=== PATIENT | male | born 1985 | race Caucasian/White ===

== ENCOUNTER 2020-11-16 15:01 | Outpatient (REF) | payer MEDICAID, SELFPAY ==
[2020-11-16 15:37] LABS: COVID-19 Test Negative (Negative)
== END 2020-11-16 15:02 | disposition home or self-care (01) ==
LOC: HO.LAB 15:01
PROVIDERS: Visit Provider Internal Medicine
DX: Z20.822 Contact with and (suspected) exposure to COVID-19 (principal)
CPT/HCPCS: 36415; 87635; C9803

== ENCOUNTER 2021-03-24 12:56 | Outpatient (REF) | payer MEDICAID, SELFPAY | END 2021-03-24 12:57 | disposition home or self-care (01) | LOC: HO.LAB 12:56 | PROVIDERS: Visit Provider Internal Medicine | DX: Z20.822 Contact with and (suspected) exposure to COVID-19 (principal) | CPT/HCPCS: 36415; 87635; C9803; U0003; U0005 ==

== ENCOUNTER 2024-01-20 23:42 | Emergency (ER) | payer MEDICAID, SELFPAY ==
--- NOTE | ~2024-01-20 | XR_ITS ---
EXAMINATION: XR HAND/WRIST, LEFT CLINICAL INFORMATION: Injury. COMPARISON: None TECHNIQUE: PA, lateral, and oblique views of the left hand and wrist. FINDINGS: Images are obtained with a marker directed towards the base of the fifth proximal phalanx. No fractures, malalignments or arthropathic changes noted. No soft tissue emphysema visualized. XR/XR hand wrist LT IMPRESSION: No acute abnormalities identified.
[2024-01-21 02:04] VITALS: BP 140/96; PULSE 80; RESP 22; TEMP 36.8; O2SAT 97; BMI 22.5
--- NOTE | 2024-01-21 04:16 | ED.EXTPRO ---
HPI - Extremity Problem General Chief complaint: Extremity Injury, Upper Stated complaint: left hand swelling, punched a wall Time Seen by Provider: 01/21/24 04:16 History of Present Illness ED Provider: Geovanna MEYER Narrative: The patient is a 38-year-old male who reports that he punched a wall at home with his left hand. He has pain at the hand and swelling and came to the emergency room for evaluation. He drove himself to the emergency room. He says that he has been under a lot of family stress recently. He says that his girlfriend is incarcerated. He says he is raising a child and that he has lost his job. He says the child is currently with his girlfriend's mother and the child is well looked after. He denies any suicidality or plans to harm himself or anyone else. He does not wish to speak with a counselor ailyn. Related Data Allergies Allergy/AdvReac Type Severity Reaction Status Date / Time Penicillins [PENICILLINS] Allergy Unknown UNKNOWN Unverified 01/21/24 02:21 Review of Systems Review of Systems: Yes all other systems are reviewed and are negative [facility] Social History Social History Smoked in Last 30 Days: Yes Use of substances other than those prescribed or required for medical reasons: Yes Substance Use Type: Marijuana Advance Directives: No Advance Directives Information Provided: No Do you have a plan to hurt others: No Plan Physical Exam Vital Signs: Vital Signs: Last Vital Signs Temp 98.0 F 01/21/24 04:59 Pulse 64 01/21/24 04:59 Resp 18 01/21/24 04:59 BP 118/69 01/21/24 04:59 Pulse Ox 95 01/21/24 04:59 O2 Del Method Room Air 01/21/24 04:59 BMI result Body Mass Index 22.5 Const: Other: The patient is awake and alert. He has some obvious swelling to the left hand. HEENT: Other: The head and face are unremarkable. Mucous membranes are moist. Eyes: Other: Pupils are round equal, conjunctivae are clear Neck: Other: Moving his neck easily Resp: Effort & Inspection: normal respiratory effort Auscultation: clear to auscultation bilaterally Skin: Other: There is soft tissue swelling to the skin of the left hand primarily over the MCP joints of the 4th and 5th fingers. The skin is intact. Neuro: Other: The patient is awake and alert with a normal mental status. He has normal neurological function of the left hand. Extrem: Other: There is soft tissue swelling in the region of the left than 5th MCP joints. There is no gross deformity aside from the soft tissue swelling. There is bony tenderness at these joints but no definite findings suggestive of a fracture. This does nontender. Medications Administered Discontinued Medications Generic Name Dose Route Start Last Admin Trade Name Michelle PRN Reason Stop Dose Admin Ketorolac Tromethamine 30 mg 01/21/24 04:21 01/21/24 04:56 Ketorolac Tromethamine 30 Mg/Ml Vial IM 01/21/24 04:22 30 mg ONCE ONE Administration Medical Decision Making Medical Decision Making [facility] Narrative: The patient is a 38-year-old male who presents for evaluation of left hand pain after punching his left fist against a wall. Clinically he has soft tissue swelling to the MCP joints of the 4th and 5th fingers of the left hand without definite findings of a fracture. Plain films of the hand show no fracture. The patient seemed to have significant discomfort however and so he was placed in an ulnar gutter splint for comfort. The patient acknowledges that he was feeling angry but he denies any sense of suicidality. He does not have any plans to hurt himself or anybody else although he admits he is under stress. He does not wish to speak with anyone from the care team. My impression is that he has not truly suicidal and I do not think there is an indication to hold him against his will and therefore I think he may be discharged. He will be discharged with his left arm in an ulnar gutter splint with instructions to keep the hand elevated. My expectation is that this is probably an injury that will not require specific follow up. If he has ongoing problems he was given the name and number of the hand surgeon. He will otherwise follow up with his regular doctor. Procedures Orthopedic Splinting/Casting Injury #1: Side: left Upper Extremity Injury Location: hand Upper Extremity Immobilizer: ulnar gutter Additional Comments: Splint was applied with cast padding and an Orthoglass slab and Mark bandages. The patient tolerated application of the splint well. Discharge Plan Discharge Clinical Impression: Contusion of left hand Patient Disposition: Home, Self-Care Additional Instructions: I do not see a fracture on your x-ray. If the official reading shows a fracture I will contact you. In the meantime you have been placed in a splint for comfort. This kind of splint is called an ulnar gutter splint. ? Please wear the splint for comfort for a few days. Keep the hand elevated to reduce swelling. You may use ibuprofen and/or acetaminophen as needed for discomfort. If after a few days you feel you were if significantly better you do not need to continue wearing the splint. However if you continued to feel you were having a lot of problems you should continue wearing the splint and contact the hand surgeon whose contact information is provided. Return to the emergency room if significantly worse. Referrals: Rhoda Brice MD [Physician] - (Hand injury, ? occult boxers' fracture) Interventions: ED Discharge Assessment Last Done: 01/21/24 04:59 Discharge Date/Time: 01/21/24 05:05 Print Language: Guatemalan
[2024-01-21 04:54] VITALS: BP 118/69; PULSE 64; RESP 18; TEMP 36.7; O2SAT 95
[2024-01-21] MEDS: Ketorolac Tromethamine 30 MG/ML VIAL IM (04:56)
[2024-01-21 04:59] VITALS: BP 118/69; PULSE 64; RESP 18; TEMP 36.7; O2SAT 95
== END 2024-01-21 05:05 | disposition home or self-care (01) ==
PROVIDERS: Emergency Provider Emergency Medicine
DX: S60.222A Contusion of left hand, initial encounter (principal); W22.01XA Walked into wall, initial encounter; Y93.9 Activity, unspecified; Y92.89 Other specified places as the place of occurrence of the external cause; Y99.9 Unspecified external cause status; M79.642 Pain in left hand
CPT/HCPCS: 29125; 73110; 73130; 96372; 99284; J1885

== ENCOUNTER 2024-02-01 02:37 | Emergency (ER) | payer MEDICAID, OTHER, SELFPAY ==
--- NOTE | ~2024-02-01 | XR_ITS ---
EXAMINATION: XR HIP, RIGHT, WITH PELVIS CLINICAL INFORMATION: Pain of right hip COMPARISON: None available. TECHNIQUE: Two views of the right hip. AP view of the pelvis. FINDINGS: The osseous pelvic ring is intact. Alignment is normal at the hips, pubic symphysis and sacroiliac joints. There appears to be a bone island of the left pubis. No suspicious osseous lesion. The articular cartilage space of each hip is maintained. The two views focused on the right hip show the femoral head to be well-positioned within the intact acetabulum. No erosion or periostitis. Soft tissues are unremarkable. XR/XR hip RT w PEL1V IMPRESSION: No acute radiographic abnormalities in the pelvis or hip. The right hip is normal.
[2024-02-01 02:39] VITALS: BP 126/81; PULSE 110; RESP 16; TEMP 37.1; O2SAT 96; BMI 22.4
[2024-02-01 06:25] VITALS: BP 122/80; PULSE 59; RESP 16; TEMP 36.2; O2SAT 99
--- NOTE | 2024-02-01 06:50 | ED_ITS ---
HPI - Extremity Problem General Chief complaint: Extremity Injury, Upper Stated complaint: left wrist pain Time Seen by Provider: 02/01/24 06:45 Source: patient Mode of arrival: ambulatory Limitations: no limitations History of Present Illness ED Provider: Birgit Ruby PA-C HPI Narrative: Patient is a 38 year old assigned male at with a history of left wrist pain presenting to the emergency department today with continued left wrist pain and right hip pain. Patient states that he was previously seen for this wrist pain but it is persisting and he was recently sleeping on concrete, causing right hip pain. Patient denies any dizziness, lightheadedness, abdominal pain, nausea, vomiting, fever, chills, blurry vision, double vision, loss of vision, chest pain, difficulty breathing, shortness of breath, back pain, night sweats, pain with urination, increased urinary frequency, increased urinary urgency, blood in his urine or stool, syncope or a near syncopal episode, recent trauma or falls, bowel incontinence, bladder incontinence, or any other complaints at this time. Radiation: none Relieving factors: nothing Exacerbating factors: nothing Associated symptoms: denies other symptoms Related Data Allergies Allergy/AdvReac Type Severity Reaction Status Date / Time Penicillins [PENICILLINS] Allergy Unknown UNKNOWN Unverified 02/01/24 02:42 Review of Systems Constitutional: Constitutional: Reports no additional constitutional complaints, Denies chills, Denies fever(s) and Denies night sweats Eyes: Eyes: Reports no additional eye complaints, Denies blurry vision, Denies change in vision, Denies diplopia, Denies eye discharge, Denies loss of vision and Denies eye pain ENT: Denies dizziness Cardiovascular: Cardiovascular: Reports no additional cardiovascular complaints, Denies chest pain, Denies lightheadedness, Denies Loss of Consciousness and Denies dyspnea Respiratory: Respiratory: Reports no additional respiratory complaints and Denies dyspnea Gastrointestinal: Gastrointestinal: Reports no additional gastrointestinal complaints, Denies abdominal pain, Denies melena, Denies hematochezia, Denies change in bowel habits and Denies change in stool character Genitourinary: Genitourinary: Reports no additional male genitourinary complaints, Denies hematuria, Denies oliguria, Denies difficulty urinating, Denies dysuria, Denies urinary frequency, Denies urinary hesitancy, Denies urinary incontinence and Denies urinary urgency Musculoskeletal: Musculoskeletal: Reports no additional musculoskeletal complaints, Denies numbness and Denies tingling Comments: right hip pain left wrist pain Neurologic: Denies dizziness, Denies loss of vision, Denies numbness and Denies tingling Psychiatric: Psychiatric: Reports no additional psychiatric complaints Endocrine: Endocrine: Reports no additional endocrine complaints Hematologic/Lymphatic: Hematologic/Lymphatic: Reports no additional hematologic/lymphatic complaints Allergic/Immunologic: Allergic/Immunologic: Reports no additional allergic/immunologic complaints [facility] Past Medical History Attestation statement: The following information was validated with the patient. Source: old records reviewed and nursing notes reviewed Social History Social History Substance Use Type: Marijuana Advance Directives: No Advance Directives Information Provided: Yes Physical Exam Vital Signs: Vital Signs: Last Vital Signs Temp 98.0 F 02/01/24 08:45 Pulse 61 02/01/24 08:45 Resp 18 02/01/24 08:45 BP 111/79 02/01/24 08:45 Pulse Ox 98 02/01/24 08:45 O2 Del Method Room Air 02/01/24 08:45 BMI result Body Mass Index 22.4 Const: General: cooperative, no acute distress, alert and awake Nutritional Appearance: well nourished Orientation/consciousness: patient oriented x3 Limitations: no limitations HEENT: Head: Yes normal to inspection and Yes atraumatic Ears: hearing grossly normal bilaterally and external ears normal General nose exam: Normal external nose present, no nasal discharge noted and no epistaxis Face and sinus: Yes normal facial exam, No abrasion and No laceration Mouth: Normal oral and palatal mucosa present, no drooling and no muffled voice Eyes: General: appearance normal, both eyes and all related structures Periorbital: periorbital findings normal Eyelids: Yes eyelids normal Conjunctivae: conjunctivae normal Pupils: Equal, round and reactive pupils present EOM: EOMs intact bilaterally Neck: Neck: Yes normal visual inspection, Yes full ROM and Yes no lymphadenopathy Chest: Chest palpation & inspection: normal inspection of the chest Resp: Effort & Inspection: normal respiratory effort and able to speak in comp lete sentences GI: Inspection: Yes normal to inspection Neuro: General: patient oriented x3 and moves all extremities Cranial nerves: Yes Equal, round and reactive pupils present Cognition (Neuro): normal cognition Extrem: General: Yes normal to inspection, Yes full ROM and Yes capillary refill normal Psych: Appearance: grossly normal Mental Status: mental status grossly normal Affect: normal affect Attitude: cooperative Thought process: Normal thought process present Thought content: Normal thought content present Insight: Good insight present (Psych) Medications Administered Discontinued Medications Generic Name Dose Route Start Last Admin Trade Name Michelle PRN Reason Stop Dose Admin Acetaminophen 650 mg 02/01/24 07:21 02/01/24 07:27 Acetaminophen 325 Mg Tablet PO 02/01/24 07:22 650 mg ONCE ONE Administration Medical Decision Making Medical Decision Making [facility] Narrative: Patient is a 38 year old assigned male at with a history of left wrist pain presenting to the emergency department today with continued left wrist pain and new right hip pain. Patient's physical exam was unremarkable. Patient's right hip x-ray showed no acute process. I explained my physical exam findings as well as all test results to the patient. I answered all questions asked by the patient. I stressed the importance of the patient taking his medication as directed (either prescribed or as the over the counter packaging recommends). I stressed the importance of the patient following up with his primary care provider. I stressed the importance of the patient returning to the emergency department immediately if his symptoms were to worsen or if he were to develop any dizziness, shortness of breath, difficulty breathing, chest pain, blurry vision, loss of vision, nausea, vomiting, abdominal pain, fever, chills, back pain, or any other complaints. Patient verbalized agreement and understanding with this treatment plan and discharge. Differential Diagnosis Differential Diagnoses: The differential diagnosis associated with the presentation includes Left wrist pain Right hip pain Admission/Observation Consideration of admission/observation: Escalation of care including admission/observation considered Patient would have been admitted to the hospital had his work up had any findings where hospital admission was appropriate and his clinical presentation warranted hospital admission. Independent Interpretation I performed an independent interpretation of an: Plain X-Ray Interpretation: My interpretation is in agreement with the radiologist's impression of this imaging study. EXAMINATION: XR HIP, RIGHT, WITH PELVIS CLINICAL INFORMATION: Pain of right hip COMPARISON: None available. TECHNIQUE: Two views of the right hip. AP view of the pelvis. FINDINGS: The osseous pelvic ring is intact. Alignment is normal at the hips, pubic symphysis and sacroiliac joints. There appears to be a bone island of the left pubis. No suspicious osseous lesion. The articular cartilage space of each hip is maintained. The two views focused on the right hip show the femoral head to be well-positioned within the intact acetabulum. No erosion or periostitis. Soft tissues are unremarkable. XR/XR hip RT w PEL1V IMPRESSION: No acute radiographic abnormalities in the pelvis or hip. The right hip is normal. Dictated By: Zaire Irizarry MD Signed By: Electronically signed by Zaire Irizarry MD 02/01/24 6297 Radiology Impression Discussion of test interpretation with radiology: I have reviewed the radiologist's reading. Discharge Plan Discharge Clinical Impression: Sprain and strain of wrist, Acute hip pain Patient Disposition: Home, Self-Care Instructions: Wrist Sprain (ED), Hip Pain (ED) Additional Instructions: Your imaging showed no abnormalities. Follow up with your primary care provider. Return to the emergency department immediately if your symptoms worsen or if you develop any dizziness, shortness of breath, difficulty breathing, chest pain, blurry vision, loss of vision, nausea, vomiting, abdominal pain, fever, chills, back pain, or any other complaints. Referrals: [facility] [place] [facility] [Provider Group] (Call to establish and follow up with a primary care provider. If you already have a primary care provider, please follow up with them.) [facility] [place] Primary Sho Sargent [Provider Group] [facility] [place] Primary Sandrine Sargent [Provider Group] Interventions: ED Discharge Assessment Last Done: 02/01/24 08:45 Discharge Date/Time: 02/01/24 08:46 Print Language: Greenlandic
[2024-02-01] MEDS: Acetaminophen 325 MG TABLET 650 MG PO (07:27)
[2024-02-01 08:18] VITALS: BP 111/79; PULSE 61; RESP 18; TEMP 36.7; O2SAT 98
[2024-02-01 08:45] VITALS: BP 111/79; PULSE 61; RESP 18; TEMP 36.7; O2SAT 98
== END 2024-02-01 08:46 | disposition home or self-care (01) ==
PROVIDERS: Emergency Provider Emergency Medicine Emergency Medical Services
DX: S63.502A Unspecified sprain of left wrist, initial encounter (principal); S66.912A Strain of unspecified muscle, fascia and tendon at wrist and hand level, left hand, initial encounter; X58.XXXA Exposure to other specified factors, initial encounter; Y93.9 Activity, unspecified; Y92.9 Unspecified place or not applicable; Y99.9 Unspecified external cause status; M25.532 Pain in left wrist; M25.551 Pain in right hip
CPT/HCPCS: 73502; 99283; 99284

== ENCOUNTER 2024-02-14 08:55 | Emergency (ER) | payer MEDICAID, SELFPAY ==
--- NOTE | ~2024-02-14 | XR_ITS ---
EXAMINATION: XR HAND/WRIST, RIGHT CLINICAL INFORMATION: Pain in right wrist, old injury COMPARISON: None TECHNIQUE: PA, lateral, and oblique views of the right hand and wrist. FINDINGS: There are multiple small metallic foreign bodies identified in the soft tissues of this right wrist, adjacent to the first carpometacarpal joint. There is deformity of the base of proximal phalanx most likely related to remote fracture with remodeling. There is no acute fracture seen. There is soft tissue swelling surrounding first carpometacarpal joint. XR/XR hand wrist RT IMPRESSION: Soft tissue swelling and multiple small metallic foreign bodies in the soft tissues of the right wrist and deformity of the base of proximal phalanx of the first digit.
[2024-02-14 09:00] VITALS: BP 129/80; RESP 16; TEMP 36.6; O2SAT 99; BMI 22.4
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
[2024-02-14 14:13] VITALS: BP 129/80; PULSE 84; RESP 16; TEMP 36.6; O2SAT 99
== END 2024-02-14 14:15 | disposition home or self-care (01) ==
PROVIDERS: Emergency Provider Emergency Medicine
DX: S63.610A Unspecified sprain of right index finger, initial encounter (principal); M25.531 Pain in right wrist; V19.9XXA Pedal cyclist (driver) (passenger) injured in unspecified traffic accident, initial encounter; Y93.55 Activity, bike riding; Y92.488 Other paved roadways as the place of occurrence of the external cause; Y99.8 Other external cause status
CPT/HCPCS: 73110; 73130; 99282; 99283

== ENCOUNTER 2024-02-21 04:32 | Emergency (ER) | payer MEDICAID, SELFPAY ==
[2024-02-21 05:19] VITALS: BP 111/69; PULSE 65; RESP 16; TEMP 36.8; O2SAT 99; BMI 22.4
[2024-02-21 05:22] VITALS: BP 111/69; PULSE 65; RESP 16; TEMP 36.8; O2SAT 99
--- NOTE | 2024-02-21 05:37 | ED_ITS ---
HPI - Skin/Abscess/Foreign Bdy General Chief complaint: Skin/Abscess/Foreign Body Stated complaint: abscess? maybe rash? Time Seen by Provider: 02/21/24 05:22 Source: patient Mode of arrival: ambulatory Limitations: no limitations History of Present Illness ED Provider: Dr. Thomas HPI narrative: patient with rash to arm and legs for up to a week. One area on left forearm is raised and patient states was draining pus. Patient is homeless. complaint: rash Onset (ago): day(s) Related Data Previous Rx's ?Medication ?Instructions ?Recorded ibuprofen 600 mg tablet 600 mg PO Q6H PRN pain #20 tabs 02/14/24 cephalexin 500 mg capsule 500 mg PO Q6H 7 days #28 caps 02/21/24 Allergies Allergy/AdvReac Type Severity Reaction Status Date / Time Penicillins [PENICILLINS] Allergy Unknown UNKNOWN Verified 02/21/24 05:22 Review of Systems Review of Systems: Yes all other systems are reviewed and are negative Neurologic: Denies Sensory deficit (Neuro) [facility] Social History Social History Smoked in Last 30 Days: Yes Use of substances other than those prescribed or required for medical reasons: No Substance Use Type: Marijuana Advance Directives: No Advance Directives Information Provided: Yes Physical Exam Vital Signs: Vital Signs: Last Vital Signs Temp 98.3 F 02/21/24 05:22 Pulse 65 02/21/24 05:22 Resp 16 02/21/24 05:22 BP 111/69 02/21/24 05:22 Pulse Ox 99 02/21/24 05:22 O2 Del Method Room Air 02/21/24 05:22 BMI result Body Mass Index 22.4 Const: Other: thin male unkept Orientation/consciousness: oriented to person and patient oriented x3 Limitations: no limitations HEENT: Head: Yes normal to inspection Ears: external ears normal General nose exam: Normal external nose present Mouth: Normal oral and palatal mucosa present and oropharynx normal Throat: Yes posterior oropharynx normal Eyes: General: appearance normal, both eyes and all related structures Neck: Other: supple Neck: Yes normal visual inspection Chest: Chest palpation & inspection: normal inspection of the chest Resp: Auscultation: clear to auscultation bilaterally Cardio: Jugular venous distension: no JVD Rate: regular rate Rhythm: regular rhythm Heart sounds: S1 normal heart sound present and S2 normal heart sound present GI: Inspection: Yes normal to inspection Palpation (GI): Soft to palpation, nontender and No hepatosplenomegaly present Auscultation: normal bowel sounds : General: Yes no CVA tenderness Back/Spine/Pelvis: Back: no CVA tenderness Skin: Other: mulitple follicle red, no pus, one papule on left forearm raised with no pus draining Neuro: General: oriented to person and patient oriented x3 Cranial nerves: Yes CN's II-XII intact bilaterally Motor exam (neuro): 5/5 motor strength present throughout Sensory Exam: No Sensory deficit (Neuro) Extrem: General: Yes normal to inspection Psych: Appearance: grossly normal Course Reevaluation(s) Reevaluation #1: patient with folliculitis will start keflex Time: 05:47 Medical Decision Making Differential Diagnosis Differential Diagnoses: The differential diagnosis associated with the presentation includes (cellulitis, folliculitis, scabies) Social Determinants Patient?s care significantly limited by Social Determinants of Health including: Inadequate housing and Low income Discharge Plan Discharge Clinical Impression: Folliculitis Patient Disposition: Home, Self-Care Instructions: Folliculitis (ED) Prescriptions: New cephalexin 500 mg capsule 500 mg PO Q6H 7 Days Qty: 28 0RF No Action ibuprofen 600 mg tablet 600 mg PO Q6H PRN (Reason: pain) Qty: 20 0RF Referrals: Physician,Unknown J [Primary Care Provider] - 1 week Print Language: Gabonese
[2024-02-21] MEDS: cephALEXin 500 MG CAPSULE PO (05:48)
[2024-02-21 06:00] VITALS: BP 111/69; PULSE 65; RESP 16; TEMP 36.8; O2SAT 99
== END 2024-02-21 06:01 | disposition home or self-care (01) ==
PROVIDERS: Emergency Provider Emergency Medicine
DX: L73.8 Other specified follicular disorders (principal); M79.632 Pain in left forearm
CPT/HCPCS: 99283; 99284

== ENCOUNTER 2024-03-09 02:33 | Emergency (ER) | payer SELFPAY ==
[2024-03-09 02:54] VITALS: BP 120/82; PULSE 72; RESP 16; TEMP 37; O2SAT 96; BMI 21.6
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
[2024-03-09 03:08] VITALS: BP 108/72; PULSE 77; RESP 16; TEMP 37; O2SAT 99
[2024-03-09 06:09] VITALS: BP 123/77; PULSE 72; RESP 17; TEMP 36.7; O2SAT 98
[2024-03-09 06:13] VITALS: BP 123/77; PULSE 72; RESP 17; TEMP 36.7; O2SAT 98
--- OUTSIDE RECORDS SUMMARY | 2024-03-10 00:29 | XMS_ITS | Continuity of Care Document ---
Author Organization [facility] ter Address [address] [place] [address]- Care Team Providers Care Child Care Cook Name Role Phone Not on Staff, PCP Primary Care Physician Unavail able Encounter [facility] Date(s): 02/18/24 - 02/19/[address] [address]- Discharge Disposition: A-D/C Home Attending Physician: Perry Bernard MD Admitting Physician: Perry Bernard MD Referring Physician: Not on Staff, Referring MD Allergies, Adverse Reactions, Alerts Substance Reaction Severity Status penicillin Active Medications clindamycin 300 mg oral capsule 1 capsule = 300 mg, By Mouth, Every 6 hours, # 56 capsule, 0 Refills Start Date: 04/10/09 Stop Date: 04/24/09 Status: Ordered Tylox 500 mg-5 mg oral capsule 1 capsule, By Mouth, Every 4 hours, PRN Pain, # 15 capsule, 0 Refills Start Date: 04/10/09 Stop Date: 04/17/09 Status: Ordered Problem List Condition Confirmation Course Effective Dates Status Health St [facility] Informant COVID-19 1 Confirmed 11/24/21 Active 1Problem added by Discern Expert Vital Signs Most recent to oldest [Reference Range]: 1 2 3 Height 186 cm (02/19/24 8:07 AM) 186 cm (02/19/24 7:45 AM) 186 cm (02/19/24 12:10 AM) Weight 77.5 kg (02/19/24 8:07 AM) 77.5 kg (02/19/24 7:45 AM) 77.5 kg (02/19/24 12:10 AM) Oxygen Saturation [94-100 %] 100 % (02/19/24 7:45 AM) 100 % (02/19/24 3:00 AM) 100 % (02/18/24 11:12 PM) Pulse Rate [55-90 bpm] 51 bpm *L* (02/19/24 7:45 AM) 53 bpm *L* (02/19/24 3:00 AM) 66 bpm (02/18/24 11:12 PM) Body Mass Index [18.5-24.99 kg/m2] 22.4 kg/m2 (02/19/24 7:45 AM) 22.4 kg/m2 (02/18/24 11:12 PM) Blood Pressure [90-138/55-84 mm Hg] 125/82mm Hg (02/19/24 7:45 AM) 111/68mm Hg (02/19/24 3:00 AM) 145/75mm Hg *H* (02/18/24 11:12 PM) Respiratory Rate [16-30 br/min] 18 br/min (02/19/24 7:45 AM) 17 br/min (02/18/24 11:12 PM) Temperature [96.8-100.4 DegF] 98.2 DegF (02/19/24 7:45 AM) 97.7 DegF (02/19/24 3:00 AM) 97.9 DegF (02/18/24 11:12 PM) Mode of Delivery (Oxygen) Room air (02/19/24 7:45 AM) Room air (02/18/24 11:12 PM) Blood pressure sites Arm, left (02/19/24 7:45 AM) Arm, left (02/19/24 3:00 AM) Arm, left (02/18/24 11:12 PM) Temperature Route Oral (02/19/24 7:45 AM) Oral (02/19/24 3:00 AM) Oral (02/18/24 11:12 PM) Dry Weight 77.5 kg (02/19/24 8:07 AM) 77.5 kg (02/19/24 7:45 AM) 77.5 kg (02/19/24 12:10 AM) Weight Obtained Via Standing scale (02/18/24 11:12 PM) Dry Weight Obtained Via Standing scale (02/18/24 11:12 PM) Patient Care team information Care Team Personnel Name: Not on Staff, PCP Position: S Physician (General Medicine) Member Role: PCP Care Team Related Persons Name: REHAN KOEHLER Address: home [address] [place] [id number]
== END 2024-03-09 06:14 | disposition home or self-care (01) ==
PROVIDERS: Emergency Provider Internal Medicine
DX: S00.31XA Abrasion of nose, initial encounter (principal); S80.212A Abrasion, left knee, initial encounter; V18.0XXA Pedal cycle driver injured in noncollision transport accident in nontraffic accident, initial encounter; Y93.55 Activity, bike riding; Y92.9 Unspecified place or not applicable; Y99.9 Unspecified external cause status
CPT/HCPCS: 99282; 99284

== ENCOUNTER 2024-08-22 02:56 | Emergency (ER) | payer MEDICAID, SELFPAY ==
--- NOTE | ~2024-08-22 | XR_ITS ---
EXAMINATION: XR LUMBOSACRAL SPINE CLINICAL INFORMATION: Pain COMPARISON: None available. TECHNIQUE: Three views of the lumbosacral spine. FINDINGS: Is maintained lumbar lordosis. The vertebral heights and alignment is normal. Ventral spondylosis seen at the L2-3 and L3-4 disc level. Minimal loss of L5-S1 disc height is seen. There is mild scoliosis likely positional. The SI joints are symmetrical. No visible acute fracture, lytic or sclerotic process seen. XR/XR lumbar spine 2-3V IMPRESSION: Mild degenerative disc changes L5-S1 disc level. Ventral spondylosis L3-4 and L2-3 disc levels. No acute fracture, dislocation or lytic process. Electronically signed by: Jose Angel Gorman MD 08/22/2024 07:05 AM SHELLY BERMUDEZ
--- NOTE | 2024-08-22 05:43 | ED_ITS ---
HPI - General Adult General Stated complaint: Back pain Time Seen by Provider: 08/22/24 05:23 Source: patient Mode of arrival: ambulatory Limitations: no limitations History of Present Illness ED Provider: HPI narrative: Patient is homeless with multiple complaints complaining of body aches back pain asking for food no recent trauma Related Data Previous Rx's ?Medication ?Instructions ?Recorded ibuprofen 600 mg tablet 600 mg PO Q6H PRN pain #20 tabs 02/14/24 cephalexin 500 mg capsule 500 mg PO Q6H 7 days #28 caps 02/21/24 Allergies Allergy/AdvReac Type Severity Reaction Status Date / Time Penicillins [PENICILLINS] Allergy Unknown UNKNOWN Verified 03/09/24 02:58 Review of Systems Review of Systems: Yes all other systems are reviewed and are negative [facility] Social History Social History Alcohol intake: current Alcohol intake frequency: holidays/special occasions only Substance Use Type: Hallucinogens and Marijuana Advance Directives: No Advance Directives Information Provided: Yes Physical Exam ED Appearance: Alert. Oriented X3. No acute distress. Eyes: PERRLA, No Nystagmus ENT: Pharynx normal. Oral Mucosa moist Neck: Normal inspection. Neck supple. CVS: Normal heart rate and rhythm. Pulses normal. Respiratory: No respiratory distress. Equal air entry bilateral, no wheezing/rales/rhonchi Abdomen: Soft and nontender. Bowel sounds are present, no mass palpable, no CVA tenderness Skin: Skin warm and dry. Normal skin color. Normal skin turgor. Extremities: No lower extremity edema. No calf tenderness Neuro: Oriented X 3. No motor deficit. No sensory deficit.No cerebellar signs , cranial nerves II-XII intact Medical Decision Making Medical Decision Making MDM Narrative: Patient with multiple complaints nonspecific no signs of infection noticed was given food in the ER patient is homeless looking for some help will discharge the patient home x-ray of the lumbar spine was done which was negative for acute Discharge Plan Discharge Clinical Impression: Homeless Patient Disposition: Home, Self-Care Instructions: Musculoskeletal Pain (ED) Additional Instructions: Drink plenty of fluid Prescriptions: No Action ibuprofen 600 mg tablet 600 mg PO Q6H PRN (Reason: pain) Qty: 20 0RF cephalexin 500 mg capsule 500 mg PO Q6H 7 Days Qty: 28 0RF Discharge Date/Time: 08/22/24 06:02 Print Language: Sami
--- NOTE | 2024-08-22 06:02 | PC.NURSE ---
documentation on downtime paperwork
== END 2024-08-22 06:02 | disposition home or self-care (01) ==
PROVIDERS: Emergency Provider Internal Medicine
DX: M79.10 Myalgia, unspecified site (principal); M54.50 Low back pain, unspecified; Z59.00 Homelessness unspecified
CPT/HCPCS: 72100; 99283

== ENCOUNTER → 2024-08-22 04:40 | Outpatient (BNV) | payer MEDICAID, SELFPAY | PROVIDERS: Emergency Provider Internal Medicine; Visit Provider Radiology Diagnostic Radiology | DX: M54.50 Low back pain, unspecified (principal) | CPT/HCPCS: 72100 ==

== ENCOUNTER 2024-09-14 22:02 | Emergency (ER) | payer MEDICAID, SELFPAY ==
--- NOTE | 2024-09-14 | ECG_ITS ---
Test Reason : pcp use Blood Pressure : */* mmHG Vent. Rate : 66 BPM Atrial Rate : 66 BPM P-R Int : 136 ms QRS Dur : 96 ms QT Int : 398 ms P-R-T Axes : 70 -47 52 degrees QTcB Int : 417 ms Normal sinus rhythm RSR' or QR pattern in V1 suggests right ventricular conduction delay Left anterior fascicular block Abnormal ECG No previous ECGs available Referred By: Generic ED Physician Electronically Signed By: Sree Edwards
[2024-09-14 22:05] VITALS: BP 143/92; PULSE 82; RESP 18; TEMP 36.2; O2SAT 98; BMI 27.1
--- NOTE | 2024-09-14 22:19 | PC.NURSE ---
Unable to obtain any info from pt. plan of care ongoing.
--- OUTSIDE RECORDS SUMMARY | 2024-09-14 22:22 | XMS_ITS | Encounter Summary ---
Author Organization [employer] [facility] Address [address] [place] [address] Care Team Providers Care Overlay Operator Name Role Phone Unavailable Primary Care Provider Unavailabl e Reason for Visit * Reason Comments Care Coordination Outreach Encounter Details Date Type Department Care Team (Latest Contact Info) Description 09/05/2024 Patient Outreach [facility] MED & PEDS [address] [place] [address] Aniket Gonzalez MD [address] [place] [address] Care Coordination (Outreach) Social History Tobacco Use Types Packs/Day Years Used Date Smoking Tobacco: Never Assessed Sex and Gender Information Value Date Recorded Sex Assigned at Male 05/16/2022 10:14 AM EDT Legal Sex Male 10:14 AM EDT Gender Identity Not on file Sexual Orientation Not on file documented as of this encounter Progress Notes * Kimberlee Caal - 09/05/2024 9:40 AM EST CHW Kimberlee Caal , placed outbound call to patient in regards to offer services. CHW introducing herself from [facility] CM Department with CHW's name, department and direct contact [phone] requesting call back. Will re-attempt to contact within 5 days. and address not confirmed. documented in this encounter Plan of Treatment Not on file documented as of this encounter Visit Diagnoses Not on filedocumented in this encounter
--- OUTSIDE RECORDS SUMMARY | 2024-09-14 22:22 | XMS_ITS | Clinical Summary ---
Author Organization [facility] [employer] Address [address] [place] [address] Care Team Providers Care Rhia Name Role Phone Unavailable Primary Care Provider Unavailabl e Encounters Date Type Department Care Team Description 09/05/2024 Patient Outreach [facility] MED & PEDS [address] [place] [address] Aniket Gonzalez MD Care Coordination (Outreach) 08/27/2024 Patient Outreach [facility] MED & PEDS [address] [place] [address] Aniket Gonzalez MD CHW-Stud Sheep Farmer Care Coordination; Care Coordination (Outreach) 08/20/2024 Patient Outreach [facility] MED & PEDS [address] [place] [address] Aniket Gonzalez MD Care Coordination (Outreach) 08/12/2024 Patient Outreach [facility] MED & PEDS [address] [place] [address] Aniket Gonzalez MD Care Coordination (Outreach) from Last 3 Months Social History Tobacco Use Types Packs/Day Years Used Date Smoking Tobacco: Never Assessed Sex and Gender Information Value Date Recorded Sex Assigned at Male 05/16/2022 10:14 AM EDT Legal Sex Male 10:14 AM EDT Gender Identity Not on file Sexual Orientation Not on file Plan of Treatment Health Maintenance Due Date Last Done Comments Depression Screening 1987 HIV Screening 1987 Lipid Panel 1987 Alcohol/Substance Use Screening 1999 Tobacco Screening 1999 Family Planning (PISQ) 11/04/2002 Hepatitis C Screening 11/04/2005 Hepatitis B Vaccines (1 of 3 - 19+ 3-dose series) 11/04/2006 DTaP/Tdap/Td Vaccines (1 - Tdap) 05/03/2017 05/02/20 17 COVID-19 Vaccine ( - 2023-2 5 season) 2024 Influenza Vaccine (#1) 2024 Zoster Vaccines (1 of 2) 11/04/2037 RSV Patients and Pa tients Aged 60 years or older (1 - 1-dose 75+ series) 11/04/2062 HIB Vaccines Aged Out No longer eligi ble based on patient's age to complete this topic HPV Vaccines Aged Out No longer eligi ble based on patient's age to complete this topic Hepatitis A Vaccines Aged Out No long er eligible based on patient's age to complete this topic IPV Vaccines Aged Out No longer eligi ble based on patient's age to complete this topic Meningococcal Vaccine Aged Out No jordon rachele eligible based on patient's age to complete this topic Pneumococcal Vaccine: Pediat rics (0 to 5 Years) and At-Risk Patients (6 to 49) Years) Aged Out No longer elig ible based on patient's age to complete this topic RSV under 20 months Aged Out No longe r eligible based on patient's age to complete this topic Rotavirus Vaccines Aged Out No longer eligible based on patient's age to complete this topic
--- OUTSIDE RECORDS SUMMARY | 2024-09-14 22:22 | XMS_ITS | Encounter Summary ---
Author Organization [employer] Address [address] [place] [address] Care Team Providers Care Christmas Tree Farm Manager Name Role Phone Unavailable Primary Care Provider Unavailabl e Reason for Visit * Reason Comments CHW-Crystal Lapper Care Coordination Care Coordination Outreach Encounter Details Date Type Department Care Team (Latest Contact Info) Description 08/27/2024 Patient Outreach [facility] CHC MED & PEDS [address] [place] [address] Aniket Gonzalez MD [address] [place] [address] CHW-Crystal Lapper Care Coordination; Care Coordination (Outreach) Social History Tobacco Use Types Packs/Day Years Used Date Smoking Tobacco: Never Assessed Sex and Gender Information Value Date Recorded Sex Assigned at Male 05/16/2022 10:14 AM EDT Legal Sex Male 10:14 AM EDT Gender Identity Not on file Sexual Orientation Not on file documented as of this encounter Progress Notes * Kimberlee Caal - 08/27/2024 10:34 AM EST CHW Kimberlee Caal , placed outbound call to patient in regards to offer services. CHW introducing herself from [facility] CM Department with CHW's name, department and direct contact [phone] requesting call back. Will re-attempt to contact within 5 days. and address not confirmed. documented in this encounter Plan of Treatment Not on file documented as of this encounter Visit Diagnoses Not on filedocumented in this encounter
--- OUTSIDE RECORDS SUMMARY | 2024-09-14 22:22 | XMS_ITS | Encounter Summary ---
Author Organization [employer] [facility] Address [address] [place] [address] Care Team Providers Care Plaster Whittler Name Role Phone Unavailable Primary Care Provider Unavailabl e Reason for Visit * Reason Comments Care Coordination Outreach Encounter Details Date Type Department Care Team (Latest Contact Info) Description 08/20/2024 Patient Outreach [facility] CH[facility] MED & PEDS [address] [place] [address] Aniket Gonzalez MD [address] [place] [address] Care Coordination (Outreach) Social History Tobacco Use Types Packs/Day Years Used Date Smoking Tobacco: Never Assessed Sex and Gender Information Value Date Recorded Sex Assigned at Male 05/16/2022 10:14 AM EDT Legal Sex Male 10:14 AM EDT Gender Identity Not on file Sexual Orientation Not on file documented as of this encounter Progress Notes * Kimberlee Caal - 08/20/2024 1:22 PM EST CHW Kimberlee Caal , placed outbound call to patient in regards to offer services. CHW introducing herself from [facility] CM Department with CHW's name, department and direct contact [phone] requesting call back. Will re-attempt to contact within 5 days. and address not confirmed. documented in this encounter Plan of Treatment Not on file documented as of this encounter Visit Diagnoses Not on filedocumented in this encounter
[2024-09-14 22:26] LABS: MANUAL DIFF FLAG NO
[2024-09-14 22:27] LABS: Basophils Percent Auto 0.3 % (0-2); Eosinophils Absolute Auto 0.2 X10*3/uL (0.0-0.4); Eosinophils Percent Auto 1.2 % (0-4); Hematocrit 40.9 % (42.0-52.0); Hemoglobin 14.6 g/dl (14.0-18.0); Imm Gran Abs Auto 0.04 X10*3/uL (0.00-0.03); Imm Gran Pct Auto 0.3 % (0.0-0.4); Lymphocytes Absolute Auto 2.6 X10*3/uL (1.2-4.9); Lymphocytes Percent Auto 20.4 % (20-40); Mean Corpuscular HGB Conc 35.7 g/dl (31.0-36.0); Mean Corpuscular Hemoglobin 33.2 pg (27.0-33.0); Mean Platelet Volume 9.3 fL (9.4-12.4); Monocytes Absolute Auto 1.1 X10*3/uL (0.1-1.2); Monocytes Percent Auto 8.6 % (2-11); Neutrophils Absolute Auto 8.7 x10*3/uL (2.0-8.3); Neutrophils Percent Auto 69.2 % (45-73); Platelet Count 337 X10*3/uL (160-400); Red Cell Distribution Width 12.8 % (11.0-16.0); White Blood Count 12.5 X10*3/uL (4.8-10.8)
[2024-09-14 22:43] LABS: Alanine Aminotransferase 19 U/L (0-40); Albumin Level 4.7 g/dL (3.5-5.0); Alkaline Phosphatase 54 U/L (39-117); Anion Gap 13 (12-20); Aspartate Amino Transferase 24 U/L (5-37); Bilirubin Total 0.4 mg/dL (0.0-1.0); Blood Urea Nitrogen 13 mg/dL (9-16); Calcium 9.4 mg/dL (8.4-10.2); Carbon Dioxide 25 mmol/L (22-29); Chloride 106 mmol/L (96-108); Creatinine Clr Calc Pharmacy 140.1; Estimated Glomerular Filt Rate > 60; Ethanol < 10 mg/dL; Glucose Random 92 mg/dL (60-115); Lipase 18 U/L (8-78); Potassium 3.9 mmol/L (3.3-5.1); Sodium 140 mmol/L (135-145); Total Protein 7.8 g/dL (6.5-8.0)
[2024-09-14 22:48] LABS: Acetaminophen LAB < 3 mcg/mL (<30); Salicylate < 5.0 mg/dL (15-30)
--- NOTE | 2024-09-14 23:04 | ED_ITS ---
HPI - Psych General Chief Complaint: Psychiatric Symptoms Stated Complaint: ?SI Time Seen by Provider: 09/14/24 22:39 Source: patient Mode of arrival: ambulatory Limitations: no limitations History of Present Illness ED Provider: HPI Narrative: Patient's history of depression felt more depressed as has a restraining order and will not be able to see his daughter was 3 years old smokes marijuana and PCP hours ago denies any suicidal ideation does not take any medication for depression Related Data Previous Rx's ?Medication ?Instructions ?Recorded ibuprofen 600 mg tablet 600 mg PO Q6H PRN pain #20 tabs 02/14/24 cephalexin 500 mg capsule 500 mg PO Q6H 7 days #28 caps 02/21/24 Allergies Allergy/AdvReac Type Severity Reaction Status Date / Time Penicillins [PENICILLINS] Allergy Unknown UNKNOWN Verified 09/14/24 22:08 Review of Systems 2 Review of Systems: Yes all other systems are reviewed and are negative [facility] Social History Social History Alcohol intake: current Alcohol intake frequency: holidays/special occasions only Substance Use Type: Hallucinogens and Marijuana Advance Directives: No Advance Directives Information Provided: No Do you have a plan to hurt others: No Plan Physical Exam 2 Vital Signs: Vital Signs: Last Vital Signs Temp 97.2 F 09/14/24 22:05 Pulse 82 09/14/24 22:05 Resp 18 09/15/24 00:49 BP 143/92 H 09/14/24 22:05 Pulse Ox 98 09/14/24 22:05 O2 Del Method Room Air 09/14/24 22:05 BMI result Body Mass Index 27.1 Appearance: Alert. Oriented X3. No acute distress. Eyes: PERRLA, No Nystagmus ENT: Pharynx normal. Oral Mucosa moist Neck: Normal inspection. Neck supple. CVS: Normal heart rate and rhythm. Pulses normal. Respiratory: No respiratory distress. Equal air entry bilateral, no wheezing/rales/rhonchi Abdomen: Soft and nontender. Bowel sounds are present, no mass palpable, no CVA tenderness Skin: Skin warm and dry. Normal skin color. Normal skin turgor. Extremities: No lower extremity edema. No calf tenderness psych: Look depressed denies any SI or HI no hallucination or delusion Neuro: Oriented X 3. No motor deficit. No sensory deficit.No cerebellar signs , cranial nerves II-XII intact Medical Decision Making Medical Decision Making MDM Narrative: Patient with depression looking for some help will get care team involved Lab Data MDM Lab Attestation statement: I reviewed the patient's lab results. 09/14/24 22:21 09/14/24 22:21 Labs: Lab Results 09/14/24 09/14/24 Range/Units 22:21 23:43 WBC 12.5 H (4.8-10.8) X10*3/uL RBC 4.40 L (4.60-5.80) X10*6/uL Hgb 14.6 (14.0-18.0) g/dl Hct 40.9 L (42.0-52.0) % MCV 93.0 (80.0-98.0) fL MCH 33.2 H (27.0-33.0) pg MCHC 35.7 (31.0-36.0) g/dl RDW 12.8 (11.0-16.0) % Plt Count 337 (160-400) X10*3/uL MPV 9.3 L (9.4-12.4) fL Immature Gran % (Auto) 0.3 (0.0-0.4) % Neut % (Auto) 69.2 (45-73) % Lymph % (Auto) 20.4 (20-40) % O'Brien % (Auto) 8.6 (2-11) % Eos % (Auto) 1.2 (0-4) % Baso % (Auto) 0.3 (0-2) % Lymph # (Auto) 2.6 (1.2-4.9) X10*3/uL O'Brien # (Auto) 1.1 (0.1-1.2) X10*3/uL Eos # (Auto) 0.2 (0.0-0.4) X10*3/uL Baso # (Auto) 0.0 (0.0-0.2) X10*3/uL Abs Immat Gran (auto) 0.04 H (0.00-0.03) X10*3/uL Absolute Neuts (auto) 8.7 H (2.0-8.3) x10*3/uL Absolute Nucleated RBC 0.000 (0.0-0.012) X10*3/uL Nucleated RBC % (auto) 0.0 (0.0-0.2) /100WBC Sodium 140 (135-145) mmol/L Potassium 3.9 (3.3-5.1) mmol/L Chloride 106 (96-108) mmol/L Carbon Dioxide 25 (22-29) mmol/L Anion Gap 13 (12-20) BUN 13 (9-16) mg/dL Creatinine 0.80 (0.5-1.4) mg/dL Estim Creat Clear Calc 140.1 Estimated GFR > 60 Random Glucose 92 (60-115) mg/dL Calcium 9.4 (8.4-10.2) mg/dL Total Bilirubin 0.4 (0.0-1.0) mg/dL AST 24 (5-37) U/L ALT 19 (0-40) U/L Alkaline Phosphatase 54 (39-117) U/L Total Protein 7.8 (6.5-8.0) g/dL Albumin 4.7 (3.5-5.0) g/dL Lipase 18 (8-78) U/L Salicylates < 5.0 L (15-30) mg/dL Urine Opiates Screen Not Detected (Not Detect) Ur Buprenorphine Scrn Not Detected (Not Detect) ng/mL Ur Oxycodone Screen Not Detected (Not Detect) ng/mL Urine Methadone Screen Not Detected (Not Detect) ng/mL Urine Fentanyl Screen Not Detected (Not Detect) Acetaminophen < 3 (<30) mcg/mL Ur Barbiturates Screen Not Detected (Not Detect) Ur Phencyclidine Scrn POSITIVE H (Not Detect) Ur Amphetamines Screen Not Detected (Not Detect) U Benzodiazepines Scrn Not Detected (Not Detect) Urine Cocaine Screen Not Detected (Not Detect) U Marijuana (THC) Screen POSITIVE H (Not Detect) Ethyl Alcohol < 10 mg/dL Discharge Plan Discharge Clinical Impression: Depression, Polysubstance abuse Patient Disposition: Still a Patient Prescriptions: No Action ibuprofen 600 mg tablet 600 mg PO Q6H PRN (Reason: pain) Qty: 20 0RF cephalexin 500 mg capsule 500 mg PO Q6H 7 Days Qty: 28 0RF Print Language: Guyanese
[2024-09-15 00:18] LABS: Amphetamine Screen Urine Not Detected (Not Detect); Barbiturates, Urine Not Detected (Not Detect); Benzodiazepines Screen Urine Not Detected (Not Detect); Buprenorphine Scr Not Detected (Not Detect); Cannabinoid Screen Urine POSITIVE (Not Detect); Cocaine Screen Urine Not Detected (Not Detect); Fentanyl, urine Not Detected (Not Detect); Methadone Screen, Urine Not Detected (Not Detect); Opiate Screen Urine Not Detected (Not Detect); Oxycodone Screen Urine Not Detected (Not Detect); Phencyclidine Screen Urine POSITIVE (Not Detect)
[2024-09-15 00:49] VITALS: RESP 18
[2024-09-15 04:50] VITALS: BP 128/87; PULSE 67; RESP 16; TEMP 36.5; O2SAT 97
--- NOTE | 2024-09-15 07:00 | PC.NURSE ---
Report taken from Pennie Walter RN
--- NOTE | 2024-09-15 10:17 | MHC.RECOVRN ---
Met with pt in ED18H to discuss ongoing substance use. Pt stated he thinks his PCP use is problematic and has caused lots of issues for him. Encouraged pt to come visit the [facility] during walk-in hours. Pt not particularly interested stating I see a counselor through my probation and no one is forcing me to do so. I choose it for myself pt also stated I have hobbies that keep me busy and occupied. I have many goals. Discussed harm reduction strategies, and provided pt with written educational materials and local resources. Discussed recovery coaching, pt not interested in a family coach at this time. Pt appeared knowledgeable on local supports such as [facility] [place] stating I've been born and raised in [place]. I know exactly where that place is.
[2024-09-15 14:20] VITALS: BP 113/58; PULSE 54; RESP 16; TEMP 37; O2SAT 100
--- NOTE | 2024-09-15 14:38 | PC.NURSE ---
Pt.'s belongings (two bags' worth of belongings plus one diehl backpack) returned to pt. from [facility] prior to d/c.
[2024-09-15 14:39] VITALS: BP 113/58; PULSE 54; RESP 16; TEMP 37; O2SAT 100
== END 2024-09-15 14:40 | disposition home or self-care (01) ==
PROVIDERS: Emergency Provider Internal Medicine
DX: F32.A Depression, unspecified (principal); F19.10 Other psychoactive substance abuse, uncomplicated; Z79.899 Other long term (current) drug therapy
CPT/HCPCS: 36415; 80053; 80143; 80179; 80307; 83690; 85025; 93005; 99284; S9485

== ENCOUNTER → 2024-09-14 22:35 | Outpatient (BNV) | payer MEDICAID, SELFPAY | PROVIDERS: Emergency Provider Internal Medicine; Visit Provider Internal Medicine Cardiovascular Disease | DX: R94.31 Abnormal electrocardiogram [ECG] [EKG] (principal); I44.4 Left anterior fascicular block; F16.10 Hallucinogen abuse, uncomplicated | CPT/HCPCS: 93010 ==

== ENCOUNTER 2024-10-20 02:38 | Emergency (ER) | payer MEDICAID, SELFPAY ==
--- NOTE | ~2024-10-20 | XR_ITS ---
CLINICAL HISTORY: pain, swelling RIGHT HAND X-RAYS COMPARISON: 02/14/2024. FINDINGS: A total of 3 views of the right hand were obtained. Lateral view is limited due to patient positioning. Again noted are multiple tiny metallic foreign bodies in the vicinity of the second MCP joint. This does not appear to be significantly changed. Chronic deformities are again noted involving the second metacarpal head, and proximal aspect of the proximal phalanx of the second finger. No evidence of an acute fracture or dislocation. No aggressive lytic lesion or aggressive periosteal reaction. IMPRESSION: 1. No acute disease in the right hand. 2. Again noted are tiny metallic foreign bodies in the vicinity of the second MCP joint. Deformities of the second metacarpal head and proximal aspect of the proximal phalanx of the second finger are again noted. This document has been electronically signed by: Mandeep Bonilla M.D. on 10/20/2024 03:56:51
[2024-10-20 02:45] VITALS: BP 120/82; PULSE 89; RESP 18; TEMP 36.9; O2SAT 97; BMI 21.8
--- OUTSIDE RECORDS SUMMARY | 2024-10-20 03:35 | XMS_ITS | Clinical Summary ---
Author Organization [employer] Address [address] [facility] 7t [place] [address] Care Team Providers Care Food Service Worker Name Role Phone Unavailable Primary Care Provider Unavailabl e Encounters Date Type Department Care Team Description 10/15/2024 Patient Outreach [facility] MEDICINE [address] [place] [address] Aniket Gonzalez MD Care Coordination (Outreach) 09/27/2024 Population Health Risk Score [facility] (C3) Department [address] [address] Provider, Population Health Generic 09/26/2024 Patient Outreach [facility] [address] [place] [address] Aniket Gonzalez MD Care Coordination (Outreach) 09/05/2024 Patient Outreach [facility] [address] [place] [address] Aniket Gonzalez MD Care Coordination (Outreach) 08/27/2024 Patient Outreach [facility] [address] [place] [address] Aniket Gonzalez MD CHW-Embedded Software Development Engineer Care Coordination; Care Coordination (Outreach) 08/20/2024 Patient Outreach [facility] [address] [place] [address] Aniket Gonzalez MD Care Coordination (Outreach) 08/12/2024 Patient Outreach [facility] [address] [place] [address] Aniket Gonzalez MD Care Coordination (Outreach) from [...] - Tdap) 05/03/2017 05/02/20 17 COVID-19 Vaccine (1 - 2023-2 5 season) 2024 Influenza Vaccine [...]
--- OUTSIDE RECORDS SUMMARY | 2024-10-20 03:35 | XMS_ITS | Encounter Summary ---
Author Organization [facility] Address [address] [facility] 7[address] [place] [address] Care Team Providers Care Section Supervisor Name Role Phone Unavailable Primary Care Provider Unavailabl e Reason for Visit * Reason Comments Care Coordination Outreach Encounter Details Date Type Department Care Team (Latest Contact Info) Description 10/15/[address] [facility] MEDICINE [address] [place] [address] Aniket Gonzalez MD [address] [place] [address] Care Coordination (Outreach) Social History Tobacco Use Types Packs/Day Years Used Date Smoking Tobacco: Never Assessed Sex and Gender Information Value Date Recorded Sex Assigned at Male 05/16/2022 10:14 AM EDT Legal Sex Male 10:14 AM EDT Gender Identity Not on file Sexual Orientation Not on file documented as of this encounter Progress Notes * Kimberlee Caal - 10/15/2024 11:09 AM EDT CHW Kimberlee Caal placed outbound call to patient to introduce complex care program. Number is disconnected and was unable to LVM. and address not verified. Will attempt again in 5 business days. documented in this encounter Plan of Treatment Not on file documented as of this encounter Visit Diagnoses Not on filedocumented in this encounter
--- OUTSIDE RECORDS SUMMARY | 2024-10-20 03:58 | XMS_ITS | Clinical Summary ---
Author Organization [employer] Address [address] [facility] 7[address] [place] [address] Care Team Providers Care Game Bird Farmer Name Role Phone Unavailable Primary Care Provider Unavailabl e Encounters Date Type Department Care Team Description 10/15/2024 Patient Outreach [facility] MEDICINE [address] [place] [address] Aniket Gonzalez MD Care Coordination (Outreach) 09/27/2024 Population Health Risk Score [facility] (C3) Department [address] [address] Provider, Population Health Generic 09/26/2024 Patient Outreach [facility] [address] [place] [address] Aniket Gonzalez MD Care Coordination (Outreach) 09/05/2024 Patient Outreach [facility] [address] [place] [address] Aniket Gonzalez MD Care Coordination (Outreach) 08/27/2024 Patient Outreach [facility] [address] [place] [address] Aniket Gonzalez MD CHW-Gang Tailer Care Coordination; Care Coordination (Outreach) 08/20/2024 Patient Outreach [facility] [address] [place] [address] Aniket Gonzalez MD Care Coordination (Outreach) 08/12/2024 Patient Outreach [facility] [address] [place] [address] Aniket Gonzalez MD Care Coordination (Outreach) from [...]
--- OUTSIDE RECORDS SUMMARY | 2024-10-20 03:58 | XMS_ITS | Encounter Summary ---
Author Organization [employer] [facility] Address [address] [facility] [address] [place] [address] Care Team Providers Care Shop Girl Name Role Phone Unavailable Primary Care Provider Unavailabl e Reason for Visit * Reason Comments Care Coordination Outreach Encounter Details Date Type Department Care Team (Latest Contact Info) Description 10/15/2024 Patient Outreach [facility] MEDICINE [address] [place] [address] Aniket Gonzalez MD [address] [place] [address] Care Coordination (Outreach) Social History Tobacco Use [...]
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
== END 2024-10-20 06:43 | disposition home or self-care (01) ==
PROVIDERS: Emergency Provider Emergency Medicine
DX: S60.221A Contusion of right hand, initial encounter (principal); Y04.2XXA Assault by strike against or bumped into by another person, initial encounter; M79.641 Pain in right hand; Y93.9 Activity, unspecified; Y92.9 Unspecified place or not applicable; Y99.9 Unspecified external cause status
CPT/HCPCS: 73120; 99281; 99283

== ENCOUNTER → 2024-10-20 02:55 | Outpatient (BNV) | payer MEDICAID, SELFPAY | PROVIDERS: Visit Provider Radiology Diagnostic Radiology | DX: M79.641 Pain in right hand (principal); R22.31 Localized swelling, mass and lump, right upper limb | CPT/HCPCS: 73120 ==

== ENCOUNTER 2024-10-21 02:03 | Emergency (ER) | payer MEDICAID, SELFPAY ==
[2024-10-21 02:05] VITALS: BMI 22.3
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
--- OUTSIDE RECORDS SUMMARY | 2024-10-21 02:08 | XMS_ITS | Clinical Summary ---
Author Organization [employer] Address [address] [facility] [address] [place] [address] Care Team Providers Care Stem Frazer Name Role Phone Unavailable Primary Care Provider Unavailabl e Encounters Date Type Department Care Team Description 10/15/2024 Patient Outreach [facility] MEDICINE [address] [place] [address] Aniket Gonzalez MD Care Coordination (Outreach) 09/27/2024 Population Health Risk Score [facility] (C3) Department [address] [address] Provider, Population Health Generic 09/26/2024 Patient Outreach [facility] [address] [place] [address] Aniket Gonzalez MD Care Coordination (Outreach) 09/05/2024 Patient Outreach [facility] [address] [place] [address] Aniket Gonzalez MD Care Coordination (Outreach) 08/27/2024 Patient Outreach [facility] [address] [place] [address] Aniket Gonzalez MD CHW-Cv Rn Care Coordination; Care Coordination (Outreach) 08/20/2024 Patient Outreach [facility] [address] [place] [address] Aniket Gonzalez MD Care Coordination (Outreach) 08/12/2024 Patient Outreach [facility] [address] [place] [address] Aniket Gonzalez MD Care Coordination (Outreach) from [...]
[2024-10-21 02:10] VITALS: BP 0/0; PULSE 0; RESP 0; TEMP -17.7; TEMP 0; O2SAT 0
--- NOTE | 2024-10-21 02:10 | PC.NURSE ---
Pt seen by provider in triage. discharge instructions given by provider
== END 2024-10-21 02:11 | disposition home or self-care (01) ==
PROVIDERS: Emergency Provider Emergency Medicine
DX: M79.641 Pain in right hand (principal)
CPT/HCPCS: 99282

== ENCOUNTER 2024-10-24 02:33 | Emergency (ER) | payer MEDICAID, SELFPAY | END 2024-10-24 03:09 | disposition home or self-care (01) | PROVIDERS: Emergency Provider Emergency Medicine | DX: G89.29 Other chronic pain (principal); M79.641 Pain in right hand ==